=== PATIENT | female | born 2000 | race Caucasian/White ===

== ENCOUNTER 2018-03-26 06:17 | Emergency (ER) | payer OTHER ==
[2018-03-26 07:42] LABS: APPEARANCE,URINE SLIGHTLY-CLOUDY; BILIRUBIN,URINE NEGATIVE (NEGATIVE); GLUCOSE, URINE NEGATIVE (NEGATIVE); KETONES,URINE TRACE mg/dL (NEGATIVE); LEUKOCYTE ESTERASE,URINE TRACE (NEGATIVE); NITRITE,URINE NEGATIVE (NEGATIVE); PROTEIN,URINE 100 mg/dL (NEGATIVE); URINE SPECIFIC GRAVITY 1.038; UROBILINOGEN,URINE NEGATIVE mg/dL (<2.0)
[2018-03-26 07:43] LABS: COLOR,URINE RED
[2018-03-26] MEDS ORDERED: NITROFURANTOIN MONOHYD/M-CRYST 100 MG CAPSULE PO ONE (08:00)
--- NOTE | 2018-03-26 08:13 | ER Document Report ---
ED General - General Chief Complaint: Pain With Urination Stated Complaint: BLOOD WHEN PEEING Time Seen by Provider: 03/26/18 07:52 TRAVEL OUTSIDE OF THE [place] IN LAST 30 DAYS: No - HPI Patient complains to provider of: Dysuria hematuria Notes: Patient coming in for dysuria hematuria suprapubic left lower adnexal pain. Patient denies any vaginal discharge. Patient states finished her period approximately 3 days ago. Patient resting comfortably, evaluation denies any fevers chills nausea vomiting diarrhea denies any recent antibiotics. - Related Data Allergies/Adverse Reactions: No Known Allergies Allergy (Unverified 05/21/16 09:16) Past Medical History - Social History Smoking Status: Unknown if Ever Smoked Family History: Reviewed & Not Pertinent - Immunizations Immunizations up to date: Yes Hx Diphtheria, Pertussis, Tetanus Vaccination: Yes Review of Systems - Review of Systems Constitutional: No symptoms reported EENT: No symptoms reported Cardiovascular: No symptoms reported Respiratory: No symptoms reported Gastrointestinal: No symptoms reported Genitourinary: Dysuria, Hematuria Female Genitourinary: No symptoms reported Musculoskeletal: No symptoms reported Skin: No symptoms reported Hematologic/Lymphatic: No symptoms reported Neurological/Psychological: No symptoms reported -: Yes All other systems reviewed and negative Physical Exam - Vital signs Vitals: Temp Pulse Resp BP Pulse Ox 97.9 F 85 16 129/84 H 100 03/26/18 06:22 03/26/18 06:22 03/26/18 06:22 03/26/18 06:22 03/26/18 06:22 Interpretation: Normal - General General appearance: Appears well, Alert - HEENT Head: Normocephalic, Atraumatic Eyes: Normal Pupils: PERRL - Respiratory Respiratory status: No respiratory distress Chest status: Nontender Breath sounds: Normal Chest palpation: Normal - Cardiovascular Rhythm: Regular Heart sounds: Normal auscultation Murmur: No - Abdominal Inspection: Normal Distension: No distension Bowel sounds: Normal Tenderness: Nontender Organomegaly: No organomegaly - Back Back: Normal, Nontender - Extremities General upper extremity: Normal inspection, Nontender, Normal color, Normal ROM , Normal temperature General lower extremity: Normal inspection, Nontender, Normal color, Normal ROM , Normal temperature, Normal weight bearing. No: Josh's sign - Neurological Neuro grossly intact: Yes Cognition: Normal Orientation: AAOx4 [place] Coma Scale Eye Opening: Spontaneous [place] Coma Scale Verbal: Oriented [place] Coma Scale Motor: Obeys Commands [place] Coma Scale Total: 15 Speech: Normal Motor strength normal: LUE, RUE, LLE, RLE Sensory: Normal - Psychological Associated symptoms: Normal affect, Normal mood - Skin Skin Temperature: Warm Skin Moisture: Dry Skin Color: Normal Course - Re-evaluation Re-evalutation: 03/26/18 14:38 Leukocyte esterase positive. With patient's history of dysuria we will go ahead and treat the patient for an acute urinary tract infection. Patient will be given Macrobid. Patient discharged on - Vital Signs Vital signs: Temp Pulse Resp BP Pulse Ox 97.9 F 85 16 129/84 H 100 03/26/18 06:22 03/26/18 06:22 03/26/18 06:22 03/26/18 06:22 03/26/18 06:22 - Laboratory Laboratory results interpreted by me: 03/26/18 06:40 Urine Protein 100 H Urine Ketones TRACE H Urine Blood LARGE H Ur Leukocyte Esterase TRACE H Discharge - Discharge Clinical Impression: UTI (urinary tract infection) Qualifiers: Urinary tract infection type: site unspecified Hematuria presence: with hematuria Qualified Code(s): N39.0 - Urinary tract infection, site not specified ; R31.9 - Hematuria, unspecified; R31.9 - Hematuria, unspecified Condition: Good Disposition: HOME, SELF-CARE Instructions: Urinary Tract Infection ([facility]), Nitrofurantoin ([facility]) Additional Instructions: Evaluation is consistent with a urinary tract infection. Please take the antibiotic as prescribed. Please make sure that she follows up with [facility] for further evaluation. Return to ER symptoms worsen. We recommend taking Tylenol and Motrin for ear pain. 400 mg of Motrin along with 650 mg of Tylenol 3 times a day Prescriptions: Nitrofurantoin/Nitrofuran Mac [Macrobid 100 mg Capsule] 1 tab PO BID #14 capsule Forms: Return to Work
[2018-03-26 09:23] VITALS: BP 113/67
== END 2018-03-26 08:35 | disposition home or self-care (01) ==
LOC: ER 06:17
DX: N39.0 Urinary tract infection, site not specified (principal); R31.9 Hematuria, unspecified
CPT/HCPCS: 99283; 81025; 81001; J8499